=== PATIENT | male | born 1980 | race African-American/Black ===

== ENCOUNTER 2016-06-17 19:21 | Emergency (ER) | payer MEDICAID ==
[~2016-06-17] VITALS: Ht 172.7 cm; Wt 88.5 kg
[2016-06-17 22:43] VITALS: BP 115/71
[2016-06-17] MEDS ORDERED: BACLOFEN 10 MG TAB PO ONE (23:00)
== END 2016-06-17 23:47 | disposition home or self-care (01) ==
LOC: ER 19:21
DX: S13.9XXA Sprain of joints and ligaments of unspecified parts of neck, initial encounter (principal); R51 Headache; V89.2XXA Person injured in unspecified motor-vehicle accident, traffic, initial encounter; Y93.89 Activity, other specified; Y99.8 Other external cause status; Y92.89 Other specified places as the place of occurrence of the external cause
CPT/HCPCS: 70450; 72125

== ENCOUNTER 2016-07-09 01:50 | Emergency (ER) | payer MEDICAID ==
[~2016-07-09] VITALS: Ht 175.3 cm; Wt 90.7 kg
[2016-07-09 02:27] VITALS: BP 112/68
[2016-07-09] MEDS ORDERED: LIDOCAINE 1% HCL (LOCAL ANESTH.) INJ 20ML MDV ONE (04:38)
[2016-07-09] MEDS ORDERED: IBUPROFEN 600 MG TAB PO ONE (05:15)
== END 2016-07-09 05:10 | disposition home or self-care (01) ==
LOC: ER 01:50
DX: L02.416 Cutaneous abscess of left lower limb (principal)
CPT/HCPCS: 10060; 99283; J2001

== ENCOUNTER 2016-07-14 03:00 | Emergency (ER) | payer MEDICAID ==
[~2016-07-14] VITALS: Ht 172.7 cm; Wt 90.7 kg
[2016-07-14 03:15] VITALS: BP 119/63
== END 2016-07-14 07:20 | disposition left against medical advice (07) ==
LOC: ER 03:00
DX: M79.652 Pain in left thigh (principal); Z48.01 Encounter for change or removal of surgical wound dressing; Z53.21 Procedure and treatment not carried out due to patient leaving prior to being seen by health care provider

== ENCOUNTER 2016-11-25 05:15 | Emergency (ER) | payer MEDICAID ==
[~2016-11-25] VITALS: Ht 172.7 cm; Wt 84.4 kg
[2016-11-25 05:20] VITALS: BP 148/94
== END 2016-11-25 06:23 | disposition left against medical advice (07) ==
LOC: ER 05:17
DX: S51.012A Laceration without foreign body of left elbow, initial encounter (principal); Z53.21 Procedure and treatment not carried out due to patient leaving prior to being seen by health care provider; W18.39XA Other fall on same level, initial encounter; Y93.89 Activity, other specified; Y92.89 Other specified places as the place of occurrence of the external cause; Y99.8 Other external cause status

== ENCOUNTER 2017-03-19 11:01 | Emergency (ER) | payer MEDICAID, OTHER ==
[~2017-03-19] VITALS: Ht 172.7 cm; Wt 77.6 kg
[2017-03-19 13:43] VITALS: BP 109/69
[2017-03-19] MEDS ORDERED: ACETAMINOPHEN 325 MG TAB PO ONE (14:15)
== END 2017-03-19 14:12 | disposition home or self-care (01) ==
LOC: ER 11:01
DX: S60.562A Insect bite (nonvenomous) of left hand, initial encounter (principal); S60.561A Insect bite (nonvenomous) of right hand, initial encounter; W57.XXXA Bitten or stung by nonvenomous insect and other nonvenomous arthropods, initial encounter; Y93.89 Activity, other specified; Y92.89 Other specified places as the place of occurrence of the external cause; Y99.8 Other external cause status